=== PATIENT | male | born 1965 | race Caucasian/White ===

== ENCOUNTER 2016-11-02 11:44 | Inpatient (IN) | payer OTHER ==
--- NOTE | 2016-11-02 12:22 | PDOC ---
History of Present Illness - History of Present Illness Initial Comments: 11/02/16 13:16 The patient is a 52 year old male with significant past medical history of hypertension, hyperlipidemia, TIA 1 year ago, and HIV (last CD4 count ~750-800, virus undetectable) who presents to the emergency department with chest discomfort, nausea, and headache for 1 day. The patient reports his symptoms started with nausea, headache, and left arm tingling. He then reports that he started to develop chest discomfort on the left side of his chest this morning that did not radiate. His pain lasted for approximately 10-15 minutes and started while he was in the shower. He denies any associated shortness of breath. He denies vomiting, diarrhea, or constipation. He denies any cough, sore throat. The patient describes his headache as sinus pressure. He denies any recent illness, fevers, or chills. He denies sick contacts. The patient went to urgent care today and was referred to the ED. The patient also noted that his BP was elevated at urgent care although he has been compliant with all of his medication. <Kelsie Jimenez - Last Filed: 11/02/16 13:16> - General History Source: Patient, Old Records Exam Limitations: No Limitations <Teresa Lopez - Last Filed: 11/02/16 15:07> - General Chief Complaint: Chest Pain Stated Complaint: CHEST DISCOMFORT (PCP SENT) Time Seen by Provider: 11/02/16 12:07 Past History <Kelsie Jimenez - Last Filed: 11/02/16 13:16> - Past Medical History CVA: (TIA) HTN: Yes HIV: Yes - Surgical History Neurologic Surgery: Yes (CERVICAL FUSION) - Psycho/Social/Smoking Cessation Hx Anxiety: No Suicidal Ideation: No Smoking History: Never smoked Hx Alcohol Use: Yes (SOCIAL) Drug/Substance Use Hx: No Substance Use Type: None <Teresa Lopez - Last Filed: 11/02/16 15:07> - Past Medical History Allergies/Adverse Reactions: Allergies Allergy/AdvReac Type Severity Reaction Status Date / Time No Known Allergies Allergy Verified 11/02/16 11:50 Home Medications: Ambulatory Orders Amlodipine/Valsartan/Hcthiazid [Exforge Hct 10-320-25 mg Tab] 1 each PO DAILY Efavirenz/Emtricitab/Tenofovir [Atripla -] 1 tab PO DAILY 11/02/16 Simvastatin [Zocor -] 20 mg PO HS 11/02/16 Review of Systems - Review of Systems Able to Perform ROS?: Yes Comments:: 11/02/16 13:17 GENERAL/CONSTITUTIONAL: No fever or chills. No weakness. HEAD, EYES, EARS, NOSE AND THROAT: No change in vision. No ear pain or discharge. No sore throat. CARDIOVASCULAR: +Chest pain. No shortness of breath. RESPIRATORY: No cough, wheezing, or hemoptysis. GASTROINTESTINAL: +No nausea, vomiting, diarrhea or constipation. GENITOURINARY: No dysuria, frequency, or change in urination. MUSCULOSKELETAL: No joint or muscle swelling or pain. No neck or back pain. SKIN: No rash NEUROLOGIC: No headache, vertigo, loss of consciousness, or change in strength/ sensation. ENDOCRINE: No increased thirst. No abnormal weight change. HEMATOLOGIC/LYMPHATIC: No anemia, easy bleeding, or history of blood clots. ALLERGIC/IMMUNOLOGIC: No hives or skin allergy. <Kelsie Jimenez - Last Filed: 11/02/16 13:16> *Physical Exam - Vital Signs Last Vital Signs Temp Pulse Resp BP Pulse Ox 98.0 F 86 20 156/97 100 11/02/16 11:45 11/02/16 11:45 11/02/16 11:45 11/02/16 11:45 11/02/16 11:45 - Physical Exam Comments: 11/02/16 13:17 GENERAL: Awake, alert, and fully oriented, in no acute distress HEAD: No signs of trauma EYES: PERRLA, EOMI, sclera anicteric, conjunctiva clear ENT: Auricles normal inspection, hearing grossly normal, nares patent, oropharynx clear without exudates. Moist mucosa NECK: Normal ROM, supple, no lymphadenopathy, JVD, or masses LUNGS: Breath sounds equal, clear to auscultation bilaterally. No wheezes, and no crackles HEART: Regular rate and rhythm, normal S1 and S2, no murmurs, rubs or gallops ABDOMEN: Soft, nontender, normoactive bowel sounds. No guarding, no rebound. No masses EXTREMITIES: Normal range of motion, no edema. No clubbing or cyanosis. No cords, erythema, or tenderness NEUROLOGICAL: Cranial nerves II through XII grossly intact. Normal speech, normal gait SKIN: Warm, Dry, normal turgor, no rashes or lesions noted. <Kelsie Jimenez - Last Filed: 11/02/16 13:16> - Vital Signs Last Vital Signs Temp Pulse Resp BP Pulse Ox 98.0 F 86 20 156/97 100 11/02/16 11:45 11/02/16 11:45 11/02/16 11:45 11/02/16 11:45 11/02/16 11:45 <Teresa Lopez - Last Filed: 11/02/16 15:07> ED Treatment Course - LABORATORY CBC & Chemistry Diagram: 11/02/16 12:34 11/02/16 12:34 <Kelsie Jimenez - Last Filed: 11/02/16 13:16> - LABORATORY CBC & Chemistry Diagram: 11/02/16 12:34 11/02/16 12:34 <Teresa Lopez - Last Filed: 11/02/16 15:07> Medical Decision Making - Medical Decision Making 11/02/16 14:38 51-year-old male with history of hypertension and HIV, TIA last year presents to the emergency Department with complaints of chest pain yesterday and headache today with some left arm numbness. Differential diagnosis includes but is not limited to: ACS, GERD, CVA, intracranial mass, uncontrolled high blood pressure, pneumonia, electrolyte abnormality, toxic/metabolic derangement. Plan: 1. EKG 2. Labs 3. Chest x-ray 4. CT head 5. Observe and reevaluate Addendum: Radiologist called with the result of the CT scan: there is a hypodensity in the left occipital lobe that appears recent. Since the patient' s symptoms occurred outside of the TPA window and his NIHSS is 0, he is not a tPA candidate. Will admit to the hospital for further work-up and neurology consult. <Teresa Lopez - Last Filed: 11/02/16 15:07> *DC/Admit/Observation/Transfer - Attestations Scribe Attestion: 11/02/16 12:24 Documentation prepared by Kelsie Jimenez, acting as medical leader for Teresa Lopez MD. <Kelsie Jimenez - Last Filed: 11/02/16 13:16> - Discharge Dispostion Admit: Yes - Attestations Physician Attestion: 11/02/16 14:39 I, Dr. Teresa Lopez, attest that the scribes documentation that appears above has been prepared under my direction and personally reviewed by me in its entirety. I confirmed that the note above accurately reflects all work, treatment, procedures, and medical decision-making performed by me. <Teresa Lopez - Last Filed: 11/02/16 15:07> Diagnosis at time of Disposition: Chest pain, Headache, HIV (human immunodeficiency virus infection), Cerebrovascular accident (CVA) - Discharge Dispostion Condition at time of disposition: Stable
[2016-11-02 12:49] LABS: EOSINOPHIL 1.9 % (0-4.5); MCH 31.2 pg (25.7-33.7); MCHC 34.2 g/dl (32.0-35.9); MEAN CELL VOLUME 91.3 fl (80-96); MEAN PLT VOLUME 6.8 fl (7.5-11.1); NEUTROPHILS 78.6 % (42.8-82.8); PLATELET COUNT 230 K/MM3 (134-434); RDW 13.3 % (11.9-15.9); WHITE BLOOD COUNT 10.2 K/mm3 (4.0-10.0)
[2016-11-02 13:16] LABS: ALBUMIN 4.4 g/dl (3.4-5.0); ANION GAP 8 (8-16); BILIRUBIN,TOTAL 0.3 mg/dL (0.2-1.0); CO2 27 mmol/L (21-32); GLUCOSE,RANDOM 127 mg/dL (74-106); SGOT/AST 24 U/L (15-37); SGPT/ALT 47 U/L (12-78); TOT PROT 8.1 g/dl (6.4-8.2)
[2016-11-02 13:18] LABS: ALK PHOS 108 U/L (45-117); TROPONIN I < 0.02 ng/ml (0.00-0.05)
[2016-11-02 14:17] LABS: URINE APPEARANCE CLEAR; URINE BILIRUBIN NEGATIVE (NEGATIVE); URINE COLOR COLORLESS; URINE GLUCOSE (UA) NEGATIVE (NEGATIVE); URINE KETONE NEGATIVE (NEGATIVE); URINE LEUK ESTERASE NEGATIVE (NEGATIVE); URINE NITRITE NEGATIVE (NEGATIVE); URINE PROTEIN NEGATIVE (NEGATIVE); URINE UROBILINOGEN NEGATIVE E.U./dl (0.2-1.0)
[2016-11-02 14:23] LABS: URINE BLOOD 1+ (NEGATIVE)
[2016-11-02 14:31] LABS: URINE RBC 1 /hpf (0-3); URINE WBC <1 /hpf (3-5)
--- NOTE | 2016-11-02 15:20 | PDOC ---
NIH Stroke Scale - Last Known Well Date/Time & Onset Date Last Known Well: 11/01/16 Time Last Known Well: 00:00 (unknown true last time normal) - Initial Evaluation Level of consciousness: Alert Ask patient the month and their age: Answers both correctly Ask patient to open & close eyes; make fist and let go: Obeys both correctly Best gaze (horizontal eye movement): Normal Visual field testing: No visual field loss Facial paresis (Show teeth/raise eyebrows/close eyes tight): Normal symmetrical movement Motor Function: Left Arm: Normal Motor Function: Right Arm: Normal (extends arm 90 (or 45) degrees for 10 seconds without drift Motor Function: Left Leg: Normal (extends leg 30 degrees for 5 seconds without drift) Motor Function: Right Leg: Normal (extends leg 30 degrees for 5 seconds without drift) Limb Ataxia: No ataxia Sensory(Use pinprick test arms,legs,trunk,face/side to side): Normal Best language (Describe picture, name items, read sentences): No Aphasia Dysarthria (read several words): Normal articulation Extinction and Inattention: No abnormality - Total Score NIH Stroke Scale Score: 0
[2016-11-02] MEDS ORDERED: ASPIRIN 325 MG TABLET ONE (15:21)
[2016-11-02] MEDS ORDERED: ASPIRIN 81 MG CHEWABLE TABLETS PO ONE (15:41)
[2016-11-02] MEDS ORDERED: ACETAMINOPHEN 500 MG TABLET (FP) PO ONE (16:05)
[2016-11-02] MEDS ORDERED: ACETAMINOPHEN 325 MG TABLET (FP) ONE (16:14)
[2016-11-02 17:41] VITALS: BMI 29.5
--- NOTE | 2016-11-02 19:19 | HP ---
[id number] OF PRESENT ILLNESS: 51 year old male visiting from [place] presents to the ED with complaint of headache, tingling in left arm, and nausea for 1 day. Headache is 6/10 in intensity and currently 3/10 upon evaluation. Patient denies any visual changes or aura. Reports history of headaches monthly for the past year. He also reports an associated mild left-sided nonradiating chest pain this morning. Symptoms are exacerbated by lying down. Patients history sig for prior TIA in which he had similar symptoms tingling , left-sided arm weakness, nausea and a general sense of something being wrong. Asymptomatic on evaluation. The patient denies having visual changes, seizure-like activity, palpitations, SOB, diaphoresis, vomiting, fever, chills, dizziness, abdominal pain or dysuria. PMH: hypertension , hyperlipidemia, TIA 1 year ago, and HIV (last CD4 count ~750 -800, virus undetectable) on atripla, headaches (1 per month) PSH: Herniated disk FMH: headaches, HTN, DM SH: Non smoker Recent travel: see HPI Allergies No Known Allergies Allergy (Verified 11/02/16 11:50) HOME MEDICATIONS: Medication Instructions Recorded Amlodipine/Valsartan/Hcthiazid 1 each PO DAILY 11/02/16 [Exforge Hct 10-320-25 mg Tab] Aspirin [ASA -] 81 mg PO DAILY 11/02/16 Efavirenz/Emtricitab/Tenofovir 1 tab PO DAILY 11/02/16 [Atripla -] Simvastatin [Zocor -] 20 mg PO HS 11/02/16 REVIEW OF SYSTEMS CONSTITUTIONAL: Absent: fever, chills, diaphoresis, generalized weakness, malaise, loss of appetite, weight change HEENT: Absent: rhinorrhea, nasal congestion, throat pain, throat swelling, difficulty swallowing, mouth swelling, ear pain, eye pain, visual changes CARDIOVASCULAR: Absent: chest pain, syncope, palpitations, irregular heart rate, lightheadedness , peripheral edema RESPIRATORY: Absent: cough, shortness of breath, dyspnea with exertion, orthopnea, wheezing, stridor, hemoptysis GASTROINTESTINAL: +nausea. Absent: abdominal pain, abdominal distension, vomiting, diarrhea, constipation, melena, hematochezia GENITOURINARY: Absent: dysuria, frequency, urgency, hesitancy, hematuria, flank pain, genital pain MUSCULOSKELETAL: Absent: myalgia, arthralgia, joint swelling, back pain, neck pain SKIN: Absent: rash, itching, pallor HEMATOLOGIC/IMMUNOLOGIC: Absent: easy bleeding, easy bruising, lymphadenopathy, frequent infections ENDOCRINE: Absent: unexplained weight gain, unexplained weight loss, heat intolerance, cold intolerance NEUROLOGIC: +headache, left arm paresthesia. Absent: focal weakness, dizziness, unsteady gait, seizure, mental status changes, bladder or bowel incontinence PSYCHIATRIC: Absent: anxiety, depression, suicidal or homicidal ideation, hallucinations. PHYSICAL EXAMINATION Vital Signs - 24 hr 11/02/16 11/02/16 16:17 18:15 Pulse Rate 102 H Pulse Rate [ 95 H Apical] Respiratory 18 20 Rate Blood Pressure 161/100 Blood Pressure 150/91 [Left Arm] O2 Sat by Pulse 96 94 L Oximetry (%) GENERAL: Awake, alert, and fully oriented, in no acute distress. HEAD: Normal with no signs of trauma. EYES: Pupils equal, round and reactive to light, extraocular movements intact, sclera anicteric, conjunctiva clear. No lid lag. EARS, NOSE, THROAT: Ears normal, nares patent, oropharynx clear without exudates. Moist mucous membranes. NECK: Normal range of motion, supple without lymphadenopathy, JVD, or masses. LUNGS: Breath sounds equal, clear to auscultation bilaterally. No wheezes, and no crackles. No accessory muscle use. HEART: Regular rate and rhythm, normal S1 and S2 without murmur, rub or gallop. ABDOMEN: Soft, nontender, not distended, normoactive bowel sounds, no guarding, no rebound, no masses. No hepatomegaly or splenomegaly. MUSCULOSKELETAL: Normal range of motion at all joints. No bony deformities or tenderness. No CVA tenderness. UPPER EXTREMITIES: 2+ pulses, warm, well-perfused. No cyanosis. No clubbing. Cap refill <2 seconds. No peripheral edema. LOWER EXTREMITIES: 2+ pulses, warm, well-perfused. No calf tenderness. No peripheral edema. NEUROLOGICAL: Cranial nerves II-XII intact. Normal speech. Normal gait. PSYCHIATRIC: Cooperative. Good eye contact. Appropriate mood and affect. SKIN: Warm, dry, normal turgor, no rashes or lesions noted. Laboratory Results - last 24 hr 11/02/16 11/02/16 18:15 18:30 Ammonia 27.33 C-Reactive Protein < 0.3 CBCD WBC 10.2 K/mm3 (4.0-10.0) H 11/02/16 12:34 RBC 5.04 M/mm3 (4.00-5.60) 11/02/16 12:34 Hgb 15.7 GM/dL (11.7-16.9) 11/02/16 12:34 Hct 46.0 % (35.4-49) 11/02/16 12:34 MCV 91.3 fl (80-96) 11/02/16 12:34 MCHC 34.2 g/dl (32.0-35.9) 11/02/16 12:34 RDW 13.3 % (11.9-15.9) 11/02/16 12:34 Plt Count 230 K/MM3 (134-434) 11/02/16 12:34 MPV 6.8 fl (7.5-11.1) L 11/02/16 12:34 CMP Sodium 130 mmol/L (136-145) L 11/02/16 12:34 Potassium 4.0 mmol/L (3.5-5.1) 11/02/16 12:34 Chloride 95 mmol/L (98-107) L 11/02/16 12:34 Carbon Dioxide 27 mmol/L (21-32) 11/02/16 12:34 Anion Gap 8 (8-16) 11/02/16 12:34 BUN 9 mg/dL (7-18) 11/02/16 12:34 Creatinine 1.0 mg/dL (0.7-1.3) 11/02/16 12:34 Creat Clearance w eGFR > 60 (>60) 11/02/16 12:34 Random Glucose 127 mg/dL (74-106) H 11/02/16 12:34 Calcium 10.0 mg/dL (8.5-10.1) 11/02/16 12:34 Total Bilirubin 0.3 mg/dL (0.2-1.0) 11/02/16 12:34 AST 24 U/L (15-37) 11/02/16 12:34 ALT 47 U/L (12-78) 11/02/16 12:34 Alkaline Phosphatase 108 U/L (45-117) 11/02/16 12:34 Total Protein 8.1 g/dl (6.4-8.2) 11/02/16 12:34 Albumin 4.4 g/dl (3.4-5.0) 11/02/16 12:34 CARDIAC ENZYMES Creatine Kinase 284 IU/L (39-308) 11/02/16 12:34 Troponin I < 0.02 ng/ml (0.00-0.05) 11/02/16 12:[address] with and without contrast Impression: Acute/subacute left occipital/temporal cortical infarct. Head CT without contrast Impression: Zone of decreased attenuation is observed in the inferior medial aspect of the left occipital lobe with loss of differentiation between the white and koch matter, cortical effacement consistent with recent nonhemorrhagic infarct in the vascular territory of the branches of the left posterior cerebral artery. No evidence of acute intracranial hemorrhage. Chest X-Ray Impression: No evidence of active pulmonary disease. ASSESSMENT/PLAN: 1.) Acute CVA vs TIA -Admit to Tele -Aggrenox BID -MRI/MRA -Echo -Follow up neurology consult recommendations -Neuro checks -Consider coagulation disorder workup as out patient as patient has history of prior stroke -Speech and swallow eval. -Permissive HTN hold BP meds -Tylenol PRN -Zofran PRN -Asymbostatin 20 mg daily HS 2.) HIV -Continue heart therapy, atripla DVT ppx -SCDs Documentation prepared by Julia Bahena, acting as medical videographer for Doreen Grullon M.D. <Doreen Grullon - Last Filed: 11/10/16 19:59> Visit type - Emergency Visit Emergency Visit: Yes ED Registration Date: 11/02/16 Care time: The patient presented to the Emergency Department on the above date and was hospitalized for further evaluation of their emergent condition. - New Patient This patient is new to me today: Yes Date on this admission: 11/10/16 - Critical Care Critical Care patient: No
[2016-11-02] MEDS ORDERED: ONDANSETRON 4 MG/2 ML VIAL IVPB PRN (21:18)
[2016-11-02] MEDS: ASPIRIN/DIPYRIDAMOLE 25 MG/200 MG CAPSULE (FP) PO SCH (21:55)
[2016-11-02] MEDS ORDERED: ATORVASTATIN CA 10 MG TABLET (FP) PO SCH (22:00)
[2016-11-03] MEDS: ACETAMINOPHEN 325 MG TABLET (FP) PO PRN ×2 (00:31→13:54)
[2016-11-03 07:50] LABS: CHOLESTEROL 243 mg/dL (50-200); LDL CHOLESTEROL (ONLY SJRH) 147 mg/dL (5-100)
[2016-11-03 07:51] LABS: TROPONIN I < 0.02 ng/ml (0.00-0.05)
--- NOTE | 2016-11-03 09:11 | PN ---
Teaching Attending Note Name of Resident: Tori Vega ATTENDING PHYSICIAN STATEMENT I saw and evaluated the patient. I reviewed the resident's note and discussed the case with the resident. I agree with the resident's findings and plan as documented. SUBJECTIVE: Patient is feeling better with no acute distress. No headache, no nausea or vomiting. no weakness. OBJECTIVE: Vital Signs Temperature 97.3 F L 11/03/16 06:00 Pulse Rate 73 11/03/16 06:00 Respiratory Rate 19 11/03/16 06:00 Blood Pressure 135/80 11/03/16 06:00 O2 Sat by Pulse Oximetry (%) 98 11/03/16 06:00 GENERAL: The patient is awake, alert, and fully oriented, in no acute distress. HEAD: Normal with no signs of trauma. EYES: PERRL, extraocular movements intact, sclera anicteric, conjunctiva clear. No ptosis. ENT: Ears normal, nares patent, oropharynx clear without exudates, moist mucous membranes. NECK: Trachea midline, full range of motion, supple. LUNGS: Breath sounds equal, clear to auscultation bilaterally, no wheezes, no crackles, no accessory muscle use. HEART: Regular rate and rhythm, S1, S2 without murmur, rub or gallop. ABDOMEN: Soft, nontender, nondistended, normoactive bowel sounds, no guarding, no rebound, no hepatosplenomegaly, no masses. EXTREMITIES: 2+ pulses, warm, well-perfused, no edema. NEUROLOGICAL: Cranial nerves II through XII grossly intact. Normal speech, Power 5/5 , no gait abnormality PSYCH: Normal mood, normal affect. SKIN: Warm, dry, normal turgor, no rashes or lesions noted CBCD WBC 10.2 K/mm3 (4.0-10.0) H 11/02/16 12:34 RBC 5.04 M/mm3 (4.00-5.60) 11/02/16 12:34 Hgb 15.7 GM/dL (11.7-16.9) 11/02/16 12:34 Hct 46.0 % (35.4-49) 11/02/16 12:34 MCV 91.3 fl (80-96) 11/02/16 12:34 MCHC 34.2 g/dl (32.0-35.9) 11/02/16 12:34 RDW 13.3 % (11.9-15.9) 11/02/16 12:34 Plt Count 230 K/MM3 (134-434) 11/02/16 12:34 MPV 6.8 fl (7.5-11.1) L 11/02/16 12:34 CMP Sodium 130 mmol/L (136-145) L 11/02/16 12:34 Potassium 4.0 mmol/L (3.5-5.1) 11/02/16 12:34 Chloride 95 mmol/L (98-107) L 11/02/16 12:34 Carbon Dioxide 27 mmol/L (21-32) 11/02/16 12:34 Anion Gap 8 (8-16) 11/02/16 12:34 BUN 9 mg/dL (7-18) 11/02/16 12:34 Creatinine 1.0 mg/dL (0.7-1.3) 11/02/16 12:34 Creat Clearance w eGFR > 60 (>60) 11/02/16 12:34 Random Glucose 127 mg/dL (74-106) H 11/02/16 12:34 Calcium 10.0 mg/dL (8.5-10.1) 11/02/16 12:34 Total Bilirubin 0.3 mg/dL (0.2-1.0) 11/02/16 12:34 AST 24 U/L (15-37) 11/02/16 12:34 ALT 47 U/L (12-78) 11/02/16 12:34 Alkaline Phosphatase 108 U/L (45-117) 11/02/16 12:34 Total Protein 8.1 g/dl (6.4-8.2) 11/02/16 12:34 Albumin 4.4 g/dl (3.4-5.0) 11/02/16 12:34 CARDIAC ENZYMES Creatine Kinase 211 IU/L (39-308) D 11/03/16 05:35 Troponin I < 0.02 ng/ml (0.00-0.05) 11/03/16 05:35 Current Medications Generic Name Dose Route Start Last Admin Trade Name Freq PRN Reason Stop Dose Admin Acetaminophen 650 mg 11/02/16 21:18 11/03/16 00:31 Tylenol - PO 650 mg Q6H PRN Administration FEVER OR PAIN Atorvastatin Calcium 10 mg 11/03/16 22:00 Lipitor - PO HS WALTER Dipyridamole/Aspirin 1 combo 11/02/16 22:00 11/02/16 21:55 Aggrenox - PO 1 combo BID WALTER Administration Non-Formulary Medication 1 tab 11/03/16 10:00 Efavirenz/Emtricitab/Tenofovir PO DAILY WALTER Ondansetron HCl 4 mg 11/02/16 21:18 Zofran Injection IVPB Q6H PRN NAUSEA Medication Instructions Recorded Amlodipine/Valsartan/Hcthiazid 1 each PO DAILY 11/02/16 [Exforge Hct 10-320-25 mg Tab] Aspirin [ASA -] 81 mg PO DAILY 11/02/16 Efavirenz/Emtricitab/Tenofovir 1 tab PO DAILY 11/02/16 [Atripla -] Simvastatin [Zocor -] 20 mg PO HS 11/02/16 ASSESSMENT AND PLAN: Patient is a 51 year old male visiting from [place] presents to the ED with complaint of headache, tingling in left arm, and nausea for 1 day. Headache is 6 /10 in intensity and currently 3/10 upon evaluation. Patient denies any visual changes or aura. # Acute TIA symptoms had a similar episode last year. On Zocor and increased aspirin from 81mg to 325mg ecotrin , since patient stated that lety't afford Aggrenox :MRI/MRA completed and reviewed , Echo reviewed. Discussed with Dr.Soliman Lala to discharge the patient on Aspirin 325mg daily -Follow up with neurology in a week. -Consider coagulation disorder workup as out patient as patient has history of prior stroke # HIV Continue heart therapy
--- NOTE | 2016-11-03 09:36 | CONSULT ---
Admitting History and Physical - Primary Care Physician PCP: Emma Zhang - Admission History of Present Illness: HISTORY OF PRESENT ILLNESS: 51 year old male visiting from [place] presents to the ED with complaint of headache, tingling in left arm, and nausea for 1 day. Headache is 6/10 in intensity and currently 3/10 upon evaluation. Patient denies any visual changes or aura. Reports history of headaches monthly for the past year. He also reports an associated mild left-sided nonradiating chest pain this morning. Symptoms are exacerbated by lying down. Patients history sig for prior TIA in which he had similar symptoms tingling , left-sided arm weakness, nausea and a general sense of something being wrong. Asymptomatic on evaluation. The patient denies having visual changes, seizure-like activity, palpitations, SOB, diaphoresis, vomiting, fever, chills, dizziness, abdominal pain or dysuria. Repeat CT head- Acute LEFT occipital/temporal cortical infarct. Selected Entries 11/02/16 11/02/16 11/02/16 11:45 19:48 21:18 Diet Tolerated Well Supper 100% Temperature 98.0 F 98.1 F 11/03/16 11/03/16 02:00 06:00 Diet Tolerated Supper Temperature 98 F 97.3 F L h/o TIA/CVA a year ago- went to [facility] at the time. Some word retrieval/memory difficulty that cleared quickly and [id number].. Pt reported moderate headache with tingling in LEFT UE/LE during the night. Waited until this am to come to [facility]. Pt had an anterior cervical fusion in 2012, with some tingling at times on left , however this time had leg symptoms too and headache which precipitated going to the hospital. No speech/swallow/cognitive deficits reported or observed. Pt counseled on need to go to ER immediately if he has stroke symptoms again. 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 [employer] History - Admission Reason For Visit: CHEST PAIN,HEADACHE,HIV - Diagnostics CT Scan: Report Reviewed - General Mental Status: Alert and Oriented, Awake and Alert, Able to Follow Commands Attention: Intact Ability to Follow Directions: Excellent Head/Neck Control: WFL - Hearing Hearing: Normal Speech Evaluation - Communication Primary Language: TURKMEN Secondary Language: SURINAMESE (fluent) Communication: Yes: Within Normal Limits - Speech Production Apraxia: No Able to Make Needs Known: Yes: WNL Intelligibility: Yes: WNL - Speech Characteristics Voice Loudness: Normal Voice Pitch: Yes: Normal Voice Phonatory-based Quality: Yes: Normal Speech Pattern: Normal Speech Clarity: < 100% Nasal Resonance: Normal Articulation: Yes: Precise - Language/Auditory Comprehension Follows: Yes: Complex Commands - Language/Verbal Expression Able to Respond to Simple Queries: Yes: WNL Able to Communicate Wants and Needs: Yes: WNL Functional Communication Status: Yes: WNL Written Expression: intact - 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: Yes: WNL Short Term Memory: Yes: WNL - Swallow Evaluation/Bedside Assessment Current Nutritional Intake: Regular, Thin Liquids Oral Secretions: Yes: WFL Dentition: Yes: Adequate Facial Symmetry at Rest: Symmetrical Facial Symmetry on Retraction: Symmetrical Facial Movement: Controlled Sensation: Normal Against Resistance Opening: Normal Against Resistance Closing: Normal Pucker Lips: Normal Smile: Normal Lingual Movement: Normal Lingual Speed of Movement: Normal Lingual Movement Strgth Against Opposition: Normal Lingual Movement Characteristics: Normal Velopharyngeal Movement: Normal Laryngeal Elevation: WFL Laryngeal Movement: Able to Palpate Rate of Intake: WFL Bolus Size: WFL Chewing: WFL Oral Prep Time: WFL A-P Transit: WFL Pocketing: None Timing of Swallow: WFL Coughing/Throat Clear: No Change in Voice: No Recommendations - Speech Evaluation, Impression/Plan Impression: sp/sw/cognition WNL - Dysphagia Impressions/Plan Swallowing Skills: WFL Dysphagia Impressions: No Impairment *Silent aspiration: cannot be R/O at bedside Recommendations: Neuro Consult
[2016-11-03] MEDS ORDERED: PATIENT'S OWN MEDICATION (NON-FORMULARY) (Efavirenz/Emtricitab/Tenofovir 1 TAB) PO SCH (10:00)
[2016-11-03] MEDS: ASPIRIN/DIPYRIDAMOLE 25 MG/200 MG CAPSULE (FP) PO SCH (10:00)
--- NOTE | 2016-11-03 17:01 | EKG ---
Test Reason : Blood Pressure : / mmHG Vent. Rate : 082 BPM Atrial Rate : 082 BPM P-R Int : 166 ms QRS Dur : 108 ms QT Int : 384 ms P-R-T Axes : 057 -34 039 degrees QTc Int : 448 ms NORMAL SINUS RHYTHM POSSIBLE LEFT ATRIAL ENLARGEMENT LEFT AXIS DEVIATION ABNORMAL ECG NO PREVIOUS ECGS AVAILABLE Confirmed by NAREN LOPEZ MD ([id number]) on 11/03/2016 5:00:47 PM Referred By: Confirmed By:NAREN LOPEZ MD
--- NOTE | 2016-11-03 18:04 | CON.NEURO ---
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 Home Medications - Allergies Allergies/Adverse Reactions: Allergies Allergy/AdvReac Type Severity Reaction Status Date / Time No Known Allergies Allergy Verified 11/02/16 11:50 - Home Medications Home Medications: Ambulatory Orders Amlodipine/Valsartan/Hcthiazid [Exforge Hct 10-320-25 mg Tab] 1 each PO DAILY Aspirin [ASA -] 81 mg PO DAILY 11/02/16 Efavirenz/Emtricitab/Tenofovir [Atripla -] 1 tab PO DAILY 11/02/16 Simvastatin [Zocor -] 20 mg PO HS 11/02/16 Family Disease History - Family Disease History Family History: Denies (CVA) Review of Systems - Review of Systems Constitutional: reports: No Symptoms Eyes: reports: No Symptoms HENT: reports: No Symptoms Neurological: reports: No Symptoms, Dizziness, Headache Physical Exam-Neuro Vital Signs: Vital Signs Temperature 98.3 F 11/03/16 14:00 Pulse Rate 89 11/03/16 14:00 Respiratory Rate 20 11/03/16 14:00 Blood Pressure 137/82 11/03/16 14:00 O2 Sat by Pulse Oximetry (%) 95 11/03/16 10:00 Constitutional: Yes: Well Nourished Neck: Yes: WNL - Neuro Exam Level Of Consciousness: Yes: Oriented to Person, Oriented to Place, Oriented to Time Eyes: Yes: PERRLA Speech: WNL Dominant Hand: Right Cranial Nerves II-XII Intact: Yes Gag: Present DTR's: 1+ Left Bicep, 1+ Right Bicep, 1+ Left Brachioradialis, 1+ Right Brachioradialis Response to light touch: Normal Response to pain prick: Normal Response to temperature: Abnormal Response to vibration: Abnormal Motor Strength: 3/5: Left Arm, Right Arm, Left Leg, Right Leg Gait: Deferred Imaging - Results Cat Scan: Image Reviewed MRI: Image Reviewed Problem List - Problems (1) CVA (cerebral vascular accident) Code(s): I63.9 - CEREBRAL INFARCTION, UNSPECIFIED Assessment/Plan Antiplatelet Statin Stroke education Hypercoag work up Patient lives in [place] and he wants to Leave
--- NOTE | 2016-11-03 18:07 | PN ---
Physical Exam: SUBJECTIVE: Patient seen and examined. he denies numbness, paresthesias, weakness, gait imbalance. OBJECTIVE: Vital Signs Period Temp Pulse Resp BP Sys/De Pulse Ox Last 24 Hr 97.3 F-98.3 F 73-102 18-20 128-161/80-100 94-98 GENERAL: The patient is awake, alert, and fully oriented, in no acute distress. HEAD: Normal with no signs of trauma. EYES: PERRL, extraocular movements intact, sclera anicteric, conjunctiva clear. No ptosis. ENT: Ears normal, nares patent, oropharynx clear without exudates, moist mucous membranes. NECK: Trachea midline, full range of motion, supple. LUNGS: Breath sounds equal, clear to auscultation bilaterally, no wheezes, no crackles, no accessory muscle use. HEART: Regular rate and rhythm, S1, S2 without murmur, rub or gallop. ABDOMEN: Soft, nontender, nondistended, normoactive bowel sounds, no guarding, no rebound, no hepatosplenomegaly, no masses. EXTREMITIES: 2+ pulses, warm, well-perfused, no edema. NEUROLOGICAL: Cranial nerves II through XII grossly intact. Normal speech, gait not observed. PSYCH: Normal mood, normal affect. SKIN: Warm, dry, normal turgor, no rashes or lesions noted Laboratory Results - last 24 hr 11/02/16 11/02/16 11/02/16 18:15 18:15 18:30 Hemoglobin A1c % GGT 67 Ammonia 27.33 Creatine Kinase Creatine Kinase Index CK-MB (CK-2) CK-MB (CK-2) Rel Index Troponin I C-Reactive Protein < 0.3 Triglycerides Cholesterol Total LDL Cholesterol HDL Cholesterol Vitamin B12 585 11/03/16 11/03/16 11/03/16 05:35 05:35 05:35 Hemoglobin A1c % 6.1 H GGT Ammonia Creatine Kinase 211 D Creatine Kinase Index 0.5 CK-MB (CK-2) 1.073 CK-MB (CK-2) Rel Index Cancelled Troponin I < 0.02 C-Reactive Protein Triglycerides 111 Cholesterol 243 H Total LDL Cholesterol 147 H HDL Cholesterol 84 H Vitamin B12 Active Medications Generic Name Dose Route Start Last Admin Trade Name Freq PRN Reason Stop Dose Admin Acetaminophen 650 mg 11/02/16 21:18 11/03/16 13:54 Tylenol - PO 650 mg Q6H PRN Administration FEVER OR PAIN Atorvastatin Calcium 10 mg 11/03/16 22:00 Lipitor - PO HS WALTER Dipyridamole/Aspirin 1 combo 11/02/16 22:00 11/03/16 10:00 Aggrenox - PO 1 combo BID WALTER Administration Non-Formulary Medication 1 tab 11/03/16 10:00 11/03/16 10:00 Efavirenz/Emtricitab/Tenofovir PO Not Given DAILY WALTER Ondansetron HCl 4 mg 11/02/16 21:18 Zofran Injection IVPB Q6H PRN NAUSEA Head CT without contrast; Zone of decreased attenuation is observed in the inferior medial aspect of the left occipital lobe with loss of differentiation between the white and koch matter, cortical effacement consistent with recent nonhemorrhagic infarct in the vascular territory of the branches of the left posterior cerebral artery. No evidence of acute intracranial hemorrhage. Chest X-Ray Impression: No evidence of active pulmonary disease. ASSESSMENT/PLAN: 1.) Acute CVA vs TIA -Admit to Tele -Aggrenox BID -MRI/MRA done -Echo ordered -Neurology consultation pending -Neuro checks -Speech and swallow eval.- nl, -Tylenol PRN -Zofran PRN HDL; -Asymbostatin 20 mg daily HS HIV -Continue heart therapy, atripla -last CD4 was over 700, no detectable viral load -ID doctor in [place] DVT ppx -SCDs and ambulation Disposition; Telemetry Visit type - Emergency Visit Emergency Visit: Yes ED Registration Date: 11/02/16 Care time: The patient presented to the Emergency Department on the above date and was hospitalized for further evaluation of their emergent condition. - New Patient This patient is new to me today: Yes Date on this admission: 11/03/16 - Critical Care Critical Care patient: No - Discharge Referral Referred to [facility] No
--- NOTE | 2016-11-03 18:49 | DS ---
Physical Exam: SUBJECTIVE: Patient seen and examined. He denies numbness, paresthesias, weakness, gait problems. OBJECTIVE: Vital Signs Period Temp Pulse Resp BP Sys/De Pulse Ox Last 24 Hr 97.3 F-98.3 F 73-102 18-20 128-155/80-94 95-98 PHYSICAL EXAM GENERAL: The patient is awake, alert, and fully oriented, in no acute distress. HEAD: Normal with no signs of trauma. EYES: PERRL, extraocular movements intact, sclera anicteric, conjunctiva clear. ENT: Ears normal, nares patent, oropharynx clear without exudates, moist mucous membranes. NECK: Trachea midline, full range of motion, supple. LUNGS: Breath sounds equal, clear to auscultation bilaterally, no wheezes, no crackles, no accessory muscle use. HEART: Regular rate and rhythm, S1, S2 without murmur, rub or gallop. ABDOMEN: Soft, nontender, nondistended, normoactive bowel sounds, no guarding, no rebound, no hepatosplenomegaly, no masses. EXTREMITIES: 2+ pulses, warm, well-perfused, no edema. NEUROLOGICAL: Cranial nerves II through XII grossly intact. Normal speech, gait not observed. PSYCH: Normal mood, normal affect. SKIN: Warm, dry, normal turgor, no rashes or lesions noted. LABS Laboratory Results - last 24 hr 11/02/16 11/02/16 11/02/16 18:15 18:15 18:30 Hemoglobin A1c % GGT 67 Ammonia 27.33 Creatine Kinase Creatine Kinase Index CK-MB (CK-2) CK-MB (CK-2) Rel Index Troponin I C-Reactive Protein < 0.3 Triglycerides Cholesterol Total LDL Cholesterol HDL Cholesterol Vitamin B12 585 11/03/16 11/03/16 11/03/16 05:35 05:35 05:35 Hemoglobin A1c % 6.1 H GGT Ammonia Creatine Kinase 211 D Creatine Kinase Index 0.5 CK-MB (CK-2) 1.073 CK-MB (CK-2) Rel Index Cancelled Troponin I < 0.02 C-Reactive Protein Triglycerides 111 Cholesterol 243 H Total LDL Cholesterol 147 H HDL Cholesterol 84 H Vitamin B12 HOSPITAL COURSE: Date of Admission:11/02/16 Date of Discharge: 11/03/16 Minutes to complete discharge: 50 Discharge Summary Reason For Visit: CHEST PAIN,HEADACHE,HIV Current Active Problems CVA (cerebral vascular accident) (Acute) Chest pain (Acute) HIV (human immunodeficiency virus infection) (Acute) Headache (Acute) Hospital Course: 51 year old male visiting from [place] presents to the ED with complaint of headache, tingling in left arm, and nausea for 1 day. Headache is 6/10 in intensity and currently 3/10 upon evaluation. Patient denies any visual changes or aura. Reports history of headaches monthly for the past year. He also reports an associated mild left-sided nonradiating chest pain this morning. Symptoms are exacerbated by lying down. Patients history sig for prior TIA in which he had similar symptoms tingling , left-sided arm weakness, nausea and a general sense of something being wrong. Asymptomatic on evaluation. The patient denies having visual changes, seizure-like activity, palpitations, SOB, diaphoresis, vomiting, fever, chills, dizziness, abdominal pain or dysuria. Hospital course; Admitted to telemetry for Acute CVA vs TIA. We orderded Aggrenox BID, MRI/MRA done, Echo ordered, Neurology consultation pending, Neuro checks, Speech and swallow eval.- nl, Tylenol PRN, Zofran PRN. Continued his home meds for HIV and HDl. He was seen by neurologist. CT head showed no acute findings. Condition: Stable - Instructions Diet, Activity, Other Instructions: low fat diet, Sodium on a low side, add some salt to diet. Ecotrin 325mg po daily Follow up with in a week period any symptoms or recurrence ;please come back to Emergency room immediately Referrals: Chetan Campos MD [Staff Physician] - Disposition: HOME - Home Medications Comprehensive Discharge Medication List: Ambulatory Orders Amlodipine/Valsartan/Hcthiazid [Exforge Hct 10-320-25 mg Tab] 1 each PO DAILY Efavirenz/Emtricitab/Tenofovir [Atripla Tablet -] 1 tab PO DAILY 11/02/16 Simvastatin [Zocor -] 20 mg PO HS 11/02/16 Aspirin Coated [Ecotrin -] 325 mg PO DAILY #30 tablet. 11/03/16 This patient is new to me today: Yes Date on this admission: 11/03/16 Emergency Visit: Yes ED Registration Date: 01/18/17 Care time: The patient presented to the Emergency Department on the above date and was hospitalized for further evaluation of their emergent condition. Critical Care patient: No - Discharge Referral Referred to [facility] No
[2016-11-03 20:10] VITALS: BP 135/80; PULSE 81; TEMP 98
[2016-11-03] MEDS ORDERED: ATORVASTATIN CA 10 MG TABLET (FP) PO SCH (22:00)
[2016-11-04 08:06] LABS: TOXOPLASMA IG-M QUANTITATIVE 3.8 AU/mL (0.0-7.9); TOXOPLASMA IGG QUANTITATIVE < 3.0 IU/mL (0.0-7.1)
[2016-11-04 14:16] LABS: MYOGLOBIN SERUM 32 ng/mL (28-72)
== END 2016-11-03 20:14 | disposition home or self-care (01) | DRG 203 ==
LOC: JER 11:44 → JERBED 15:17 → J4W 17:50
PROVIDERS: ADMIT Internal Medicine; ATTEND Internal Medicine
DX: R07.9 Chest pain, unspecified (principal); R51 Headache; Z21 Asymptomatic human immunodeficiency virus [HIV] infection status; Z86.73 Personal history of transient ischemic attack (TIA), and cerebral infarction without residual deficits; I10 Essential (primary) hypertension; E78.5 Hyperlipidemia, unspecified
CPT/HCPCS: 36415; 70450-TC; 70470-TC; 70544-TC; 70551-TC; 71010-TC; 80053; 80061; 81003; 81015; 82140; 82550; 82553; 82607; 82977; 83036; 83690; 83721; 83874; 84484; 85025; 86038; 86140; 86618; 86777; 86778; 93005; 93010; 93306-TC; 97116-GP; 97162-PG; 99285-25